=== PATIENT | male | born 1985 | race African-American/Black ===

== ENCOUNTER 2023-02-10 19:30 | Emergency (ER) | payer OTHER ==
[~2023-02-10] VITALS: Ht 170.2 cm; Wt 100.7 kg
--- NOTE | 2023-02-10 19:40 | NUR ---
Note perfecto in ED - 02/10/23 at 2313 by [email or web address] Patient discharged with v/s stable. Written and verbal after care instructions given and explained. New rx naproxen and penicillin v potassium. Patient verbalized understanding. Ambulatory with steady gait. All questions addressed prior to discharge. Advised to follow up with PMD.
[2023-02-10 19:54] VITALS: BP 137/96; PULSE 78; RESP 20; TEMP 97.1; O2SAT 96
--- NOTE | 2023-02-10 20:07 | NUR ---
patient to lobby
[2023-02-10] MEDS ORDERED: IBUPROFEN 600 MG TAB PO ONE (20:30)
[2023-02-10] MEDS ORDERED: NAPR-54 PO (20:36)
[2023-02-10] MEDS ORDERED: PENI500T20 PO (20:36)
--- NOTE | 2023-02-10 22:39 | NUR ---
Seen and evaluated by FABRICIO
--- NOTE | 2023-02-10 22:40 | NUR ---
Patient discharged with v/s stable. Written and verbal after care instructions given and explained. New rx naproxen and penicillin v potassium. Patient verbalized understanding. Ambulatory with steady gait. All questions addressed prior to discharge. Advised to follow up with PMD.
[2023-02-10 23:13] VITALS: BP 137/96; PULSE 78; RESP 20; TEMP 97.1; O2SAT 96
== END 2023-02-10 22:40 | disposition home or self-care (01) ==
LOC: MED 19:30
DX: K02.9 Dental caries, unspecified (principal); Z79.899 Other long term (current) drug therapy
CPT/HCPCS: 99283; 99285

== ENCOUNTER 2023-03-19 20:56 | Emergency (ER) | payer OTHER ==
[~2023-03-19] VITALS: Ht 177.8 cm; Wt 99.8 kg
[~2023-03-19 20:56] MED LIST: NAPR-54 PO; PENI500T20 PO
[2023-03-19 21:15] VITALS: BP 131/75; PULSE 77; RESP 17; TEMP 97.7; O2SAT 97
[2023-03-19] MEDS ORDERED: IBUPROFEN 600 MG TAB PO ONE (21:45)
[2023-03-19] MEDS ORDERED: AMOXIL/CLAVULANATE 875/125 MG 1 TAB PO ONE (21:45)
[2023-03-19] MEDS ORDERED: oxyCODONE/APAP 5/325 MG 1 TAB TAB PO ONE (21:45)
[2023-03-19] MEDS ORDERED: CHLO473S62 PO (22:11)
[2023-03-19] MEDS ORDERED: ACET-5629 PO (22:11)
[2023-03-19] MEDS ORDERED: AMOX1TAB8 PO (22:11)
[2023-03-19] MEDS ORDERED: IBUP-2213 PO (22:11)
[2023-03-19 22:21] VITALS: BP 126/71; PULSE 74; RESP 16; TEMP 97.7; O2SAT 97
== END 2023-03-19 22:21 | disposition home or self-care (01) ==
LOC: MED 20:56
DX: K04.7 Periapical abscess without sinus (principal); F17.210 Nicotine dependence, cigarettes, uncomplicated; Z79.899 Other long term (current) drug therapy
CPT/HCPCS: 99284